=== PATIENT | female | born 1945 | race Caucasian/White ===

== ENCOUNTER 2018-01-16 11:54 | Emergency (ER) | payer MEDICARE, MEDICAID ==
[~2018-01-16] VITALS: Ht 162.6 cm; Wt 65.0 kg
[~2018-01-16 11:54] MED LIST: ALB0.5UD IH; ALBU18HF2 IH; ASPI-1265 PO; METO-539 PO; NITR100C6 PO; PANT40TA39 PO; SPIIN INH; TRAZ-91 PO; oxygen
[2018-01-16 12:37] VITALS: BP 151/91
[2018-01-16 13:19] LABS: BASOPHILS # (AUTO) 0.1 X10'3 (0-0.2); BASOPHILS % (AUTO) 1.4 % (0-1); EOSINOPHILS # (AUTO) 0.1 X10'3 (0-0.9); HEMATOCRIT 38.7 % (35.0-45.0); HEMOGLOBIN 13.1 g/dl (12.0-16.0); LYMPHOCYTES # (AUTO) 1.8 X10'3 (1.1-4.8); LYMPHOCYTES % (AUTO) 26.2 % (21-51); MEAN CORPUSCULAR HGB CONC 33.8 % (33.0-36.5); MEAN CORPUSCULAR VOLUME 91.7 FL (78-98); MEAN PLATELET VOLUME 8.3 FL (7.4-10.4); MONOCYTES # (AUTO) 0.5 X10'3 (0-0.9); MONOCYTES % (AUTO) 7.7 % (2-12); NEUTROPHILS # (AUTO) 4.4 X10'3 (1.8-7.7); NEUTROPHILS % (AUTO) 63.7 % (42-75); PLATELET COUNT 351 X10'3 (140-440); RED BLOOD COUNT 4.22 X10'6 (4.20-5.60)
[2018-01-16 13:26] LABS: PROTHROMBIN TIME 10.2 SECONDS (9.0-12.0)
[2018-01-16 13:32] LABS: ALANINE AMINOTRANSFERASE 20 U/L (12-78); ALBUMIN/GLOBULIN RATIO 1.1 (1.1-1.5); ALKALINE PHOSPHATASE 62 IU/L (46-116); ANION GAP 7 (8-16); ASPARTATE AMINO TRANSFERASE 20 U/L (10-37); BILIRUBIN,TOTAL 0.3 MG/DL (0.1-1.0); BLOOD UREA NITROGEN 8 MG/DL (7-18); BUN/CREATININE RATIO 13.3 (6.6-38.0); CALCIUM 9.7 MG/DL (8.5-10.1); CHLORIDE 101 MMOL/L (99-107); GLUCOSE 85 MG/DL (70-104); POTASSIUM 3.9 MMOL/L (3.5-5.1); SODIUM 138 MMOL/L (135-145); TOTAL CARBON DIOXIDE 29.6 MMOL/L (24-32); TOTAL PROTEIN 7.5 G/DL (6.4-8.2); eGFR > 90 ML/MIN
[2018-01-16 14:21] LABS: CLARITY,URINE CLEAR (Clear); COLOR,URINE YELLOW (Yellow); GLUCOSE, URINE NEGATIVE (Neg); KETONES,URINE NEGATIVE (Neg); LEUKOCYTE ESTERASE ,URINE NEGATIVE (Neg); NITRITES, URINE NEGATIVE (Neg); OCCULT BLOOD,URINE TRACE-INTACT (Neg); PROTEIN,URINE NEGATIVE (Neg); UROBILINOGEN,URINE 0.2 E.U/dL (0.2-1.0)
[2018-01-16 14:26] LABS: UA COLLECTION TYPE CLN CATCH MIDSTREAM
[2018-01-16 14:27] LABS: BACTERIA,URINE NONE SEEN /HPF (Neg); MUCUS STRANDS FEW /LPF (Neg); RBC,URINE 0-2 /HPF (0-2); SQUAMOUS EPITHELIAL CELL,UR NONE SEEN /LPF (FEW); WBC,URINE NONE SEEN /HPF (0-4)
== END 2018-01-16 14:56 | disposition home or self-care (01) ==
LOC: ER 11:55
DX: D69.2 Other nonthrombocytopenic purpura (principal); F12.90 Cannabis use, unspecified, uncomplicated; J44.9 Chronic obstructive pulmonary disease, unspecified; G89.29 Other chronic pain; Z86.73 Personal history of transient ischemic attack (TIA), and cerebral infarction without residual deficits; Z88.6 Allergy status to analgesic agent; Z88.5 Allergy status to narcotic agent; Z79.82 Long term (current) use of aspirin; Z79.899 Other long term (current) drug therapy
CPT/HCPCS: 36415; 80053; 81001; 85025; 85610; 99284

== ENCOUNTER 2019-08-20 22:41 | Emergency (ER) | payer MEDICARE, MEDICAID ==
[~2019-08-20] VITALS: Ht 162.6 cm; Wt 54.5 kg
[~2019-08-20 22:41] MED LIST changes: -ALB0.5UD IH; +ALPR-149 PO; +DOXY-224 PO; +LACT1CAP26 PO; +MONT10TA26 PO; -NITR100C6 PO; +NYSPWD TP; +PRED20TA PO; -oxygen
[2019-08-20] MEDS ORDERED: predniSONE 20 mg tablet PO ONE (23:35)
[2019-08-20] MEDS ORDERED: albuterol 2.5 MG/3 ML nebule NEB ONE (23:35)
[2019-08-20] MEDS ORDERED: DOXY100C2 PO (23:45)
[2019-08-20] MEDS ORDERED: PRED20TA PO (23:47)
[2019-08-20] MEDS ORDERED: DOXYCYCLINE 100MG CAPSULE PO STA (23:49)
--- NOTE | 2019-08-21 00:21 | NUR ---
SPOKE WITH [employer] ABOUT ASSITANCE WITH PT [facility]PORT[facility] HOME AND FOLLOW UP. THEY SAID THEY DO NOT PROVIDE TRANSPORT SERVICES OR ASSISTANCE TOMMORROW UNLESS THEY HAVE A SCHEDULED APPOINTMENT. WILL CONTINUE TO ATTEMPT OTHER TRANSPORT OPTIONS HOME FOR PT.
--- NOTE | 2019-08-21 00:36 | NUR ---
ATTEMTING TO CALL PT TONY MALINDA:[phone] AND AMBER [phone]
--- NOTE | 2019-08-21 00:39 | NUR ---
SPOKE WITH PT SON MALINDA. HE SAYS HE WILL BE ON HIS WAY AND WILL STOP AT PT HOUSE TO AERIAL ERECTOR O2 TANK AND WALKER FOR PT.
[2019-08-21 01:51] VITALS: BP 149/78
== END 2019-08-21 01:53 | disposition home or self-care (01) ==
LOC: ER 22:42
DX: J44.1 Chronic obstructive pulmonary disease with (acute) exacerbation (principal); G89.29 Other chronic pain; M79.7 Fibromyalgia; F41.9 Anxiety disorder, unspecified; F17.210 Nicotine dependence, cigarettes, uncomplicated; F12.90 Cannabis use, unspecified, uncomplicated; Z90.89 Acquired absence of other organs; Z86.73 Personal history of transient ischemic attack (TIA), and cerebral infarction without residual deficits; Z98.890 Other specified postprocedural states; Z88.5 Allergy status to narcotic agent; Z79.82 Long term (current) use of aspirin; Z79.899 Other long term (current) drug therapy
CPT/HCPCS: 71045; 94640; 99284; J7512; 94760

== ENCOUNTER 2019-08-30 11:00 | Emergency (ER) | payer MEDICARE, MEDICAID ==
[~2019-08-30] VITALS: Ht 162.6 cm; Wt 60.0 kg
[2019-08-30 11:33] LABS: BASOPHILS # (AUTO) 0.1 X10'3 (0-0.2); BASOPHILS % (AUTO) 0.5 % (0-1); EOSINOPHILS % (AUTO) 0.4 % (0-6); HEMATOCRIT 33.8 % (35.0-45.0); HEMOGLOBIN 11.7 g/dl (12.0-16.0); LYMPHOCYTES # (AUTO) 0.6 X10'3 (1.1-4.8); LYMPHOCYTES % (AUTO) 5.4 % (21-51); MEAN CORPUSCULAR HEMOGLOBIN 31.4 PG (27.0-31.0); MEAN CORPUSCULAR HGB CONC 34.6 g/dL (33.0-36.5); MEAN CORPUSCULAR VOLUME 90.8 FL (78-98); MONOCYTES # (AUTO) 0.4 X10'3 (0-0.9); MONOCYTES % (AUTO) 3.2 % (2-12); NEUTROPHILS # (AUTO) 10.2 X10'3 (1.8-7.7); NEUTROPHILS % (AUTO) 90.5 % (42-75); PLATELET COUNT 372 X10'3 (140-440); RED BLOOD COUNT 3.73 X10'6 (4.20-5.60); RED CELL DISTRIBUTION WIDTH 13.8 % (11.5-14.5); WHITE BLOOD COUNT 11.3 X10'3 (4.5-11.0)
[2019-08-30 11:46] LABS: CLARITY,URINE CLEAR (Clear); COLOR,URINE YELLOW (Yellow); GLUCOSE, URINE NEGATIVE (Neg); KETONES,URINE TRACE mg/dl (Neg); LEUKOCYTE ESTERASE ,URINE SMALL (Neg); NITRITES, URINE NEGATIVE (Neg); OCCULT BLOOD,URINE NEGATIVE (Neg); PH,URINE 6.5 (4.8-8.0); PROTEIN,URINE NEGATIVE (Neg); UROBILINOGEN,URINE 0.2 E.U/dL (0.2-1.0)
[2019-08-30 11:47] LABS: UA COLLECTION TYPE CLN CATCH MIDSTREAM
[2019-08-30 11:49] LABS: ALANINE AMINOTRANSFERASE 21 U/L (12-78); ALBUMIN 3.2 G/DL (3.4-5.0); ALKALINE PHOSPHATASE 49 IU/L (46-116); ANION GAP 3 (8-16); ASPARTATE AMINO TRANSFERASE 16 U/L (10-37); BILIRUBIN,TOTAL 0.5 MG/DL (0.1-1.0); BLOOD UREA NITROGEN 15 MG/DL (7-18); BUN/CREATININE RATIO 22.7 (6.6-38.0); CALCIUM 8.7 MG/DL (8.5-10.1); CHLORIDE 93 MMOL/L (99-107); CREATININE 0.66 MG/DL (0.40-0.90); GLUCOSE 110 MG/DL (70-104); LIPASE 177 U/L (73-393); SODIUM 132 MMOL/L (135-145); TOTAL CARBON DIOXIDE 36.4 MMOL/L (24-32); TOTAL PROTEIN 6.5 G/DL (6.4-8.2); eGFR 88 ML/MIN
[2019-08-30 11:52] LABS: POTASSIUM 2.8 MMOL/L (3.5-5.1)
[2019-08-30 11:57] LABS: MUCUS STRANDS MODERATE /LPF (Neg); SQUAMOUS EPITHELIAL CELL,UR MANY /LPF (FEW)
[2019-08-30 11:59] LABS: BACTERIA,URINE FEW /HPF (Neg); CAL OXALATE CRYSTALS 3+ /HPF (NEGATIVE); RBC,URINE 0-2 /HPF (0-2); RENAL CELLS, URINE FEW /HPF; WBC,URINE 0-4 /HPF (0-4)
[2019-08-30] MEDS ORDERED: potassium chloride 10mEq ER tablet PO STA (12:35)
[2019-08-30] MEDS ORDERED: POLY17PO10 PO (12:48)
[2019-08-30] MEDS ORDERED: HYDR30CR79 TOP (12:48)
[2019-08-30] MEDS ORDERED: DOCU100C40 PO (12:48)
--- NOTE | 2019-08-30 13:23 | NUR ---
PHONE CALL TO JAD [facility] AT THIS TIME [phone]. NO ANSWER, WILL KEEP TRYING TO REACH FOR TRANSPORTATION.
[2019-08-30 14:28] VITALS: BP 129/62
== END 2019-08-30 14:30 | disposition home or self-care (01) ==
LOC: ER 11:00
DX: K60.2 Anal fissure, unspecified (principal); K59.00 Constipation, unspecified; E87.6 Hypokalemia; J44.9 Chronic obstructive pulmonary disease, unspecified; G89.29 Other chronic pain; F12.90 Cannabis use, unspecified, uncomplicated; M79.7 Fibromyalgia; F41.9 Anxiety disorder, unspecified; Z86.73 Personal history of transient ischemic attack (TIA), and cerebral infarction without residual deficits; Z86.15 Personal history of latent tuberculosis infection; Z88.8 Allergy status to other drugs, medicaments and biological substances; Z79.82 Long term (current) use of aspirin; Z79.899 Other long term (current) drug therapy
CPT/HCPCS: 36415; 80053; 81001; 83690; 85025; 85610; 99284

== ENCOUNTER 2019-09-02 07:37 | Emergency (ER) | payer MEDICARE, MEDICAID ==
[~2019-09-02] VITALS: Ht 162.6 cm; Wt 65.0 kg
[~2019-09-02 07:37] MED LIST changes: +DOCU100C40 PO; +HYDR30CR79 TOP; +POLY17PO10 PO
[2019-09-02 09:35] LABS: CLARITY,URINE CLEAR (Clear); COLOR,URINE YELLOW (Yellow); GLUCOSE, URINE NEGATIVE (Neg); KETONES,URINE NEGATIVE (Neg); LEUKOCYTE ESTERASE ,URINE NEGATIVE (Neg); NITRITES, URINE NEGATIVE (Neg); OCCULT BLOOD,URINE NEGATIVE (Neg); PROTEIN,URINE NEGATIVE (Neg); UROBILINOGEN,URINE 0.2 E.U/dL (0.2-1.0)
[2019-09-02 09:37] LABS: UA COLLECTION TYPE CLN CATCH MIDSTREAM
[2019-09-02 11:08] VITALS: BP 130/56
[2019-09-07] MEDS ORDERED: POTA-82 PO (19:51)
[2019-09-07] MEDS ORDERED: NYST15PO4 TOP (23:48)
[2019-09-07] MEDS ORDERED: FURO20TA4 PO (23:48)
[2019-09-07] MEDS ORDERED: MONT10TA21 PO (23:48)
[2019-09-07] MEDS ORDERED: DOCU100C59 PO (23:48)
[2019-09-07] MEDS ORDERED: HYDR30CR99 TOP (23:48)
== END 2019-09-02 12:25 | disposition home or self-care (01) ==
LOC: ER 07:38
DX: R33.9 Retention of urine, unspecified (principal); K56.41 Fecal impaction; J44.9 Chronic obstructive pulmonary disease, unspecified; G89.29 Other chronic pain; F41.9 Anxiety disorder, unspecified; F12.90 Cannabis use, unspecified, uncomplicated; Z98.890 Other specified postprocedural states; Z86.73 Personal history of transient ischemic attack (TIA), and cerebral infarction without residual deficits; Z86.19 Personal history of other infectious and parasitic diseases; Z88.6 Allergy status to analgesic agent; Z88.5 Allergy status to narcotic agent; Z79.82 Long term (current) use of aspirin; Z79.899 Other long term (current) drug therapy
CPT/HCPCS: 51701; 81003; 99284

== ENCOUNTER 2021-07-29 17:04 | Emergency (ER) | payer MEDICARE, MEDICAID ==
[~2021-07-29] VITALS: Ht 162.6 cm; Wt 63.6 kg
[~2021-07-29 17:04] MED LIST changes: -ALPR-149 PO; +ATOR20TA66 PO; +CLOP75TA34 PO; -DOCU100C40 PO; +DOCU100C59 PO; -DOXY-224 PO; +FLUT16SP26 BOTHNARES; -HYDR30CR79 TOP; -LACT1CAP26 PO; +MONT10TA21 PO; -MONT10TA26 PO; +NICO-630 TD; -NYSPWD TP; -POLY17PO10 PO; -PRED20TA PO; -TRAZ-91 PO
[2021-07-29 17:08] VITALS: BP 149/78
[2021-07-29] MEDS ORDERED: tranexamic acid 100mg/ml inj. TP ONE (17:10)
[2021-07-29] MEDS ORDERED: AMOX-419 PO (17:28)
== END 2021-07-29 20:45 | disposition home or self-care (01) ==
LOC: ER 17:04
DX: R04.0 Epistaxis (principal); J44.9 Chronic obstructive pulmonary disease, unspecified; G89.29 Other chronic pain; M79.7 Fibromyalgia; F12.90 Cannabis use, unspecified, uncomplicated; Z86.73 Personal history of transient ischemic attack (TIA), and cerebral infarction without residual deficits; Z87.01 Personal history of pneumonia (recurrent); Z86.19 Personal history of other infectious and parasitic diseases; Z90.89 Acquired absence of other organs; Z88.8 Allergy status to other drugs, medicaments and biological substances; Z91.011 Allergy to milk products; Z79.82 Long term (current) use of aspirin; Z79.899 Other long term (current) drug therapy
CPT/HCPCS: 99283

== ENCOUNTER 2021-10-22 10:19 | Emergency (ER) | payer MEDICARE, MEDICAID ==
[~2021-10-22] VITALS: Ht 162.6 cm; Wt 65.0 kg
--- NOTE | 2021-10-22 11:36 | NUR ---
Lung sounds clear. Pt states she had a sinus infection for a few days- on doxycline and prednisone. Pt states that she feels like doxycline is the cause for her repeated UTIs. Pt states she had covid vaccines and booster.
--- NOTE | 2021-10-22 13:00 | NUR ---
Pt has no apparent distress or needs at this time.
[2021-10-22 13:19] LABS: BASOPHILS # (AUTO) 0.1 X10'3 (0-0.2); BASOPHILS % (AUTO) 0.6 % (0-1); EOSINOPHILS # (AUTO) 0.1 X10'3 (0-0.9); EOSINOPHILS % (AUTO) 1.1 % (0-6); HEMATOCRIT 38.2 % (35.0-45.0); HEMOGLOBIN 12.6 g/dl (12.0-16.0); LYMPHOCYTES # (AUTO) 2.3 X10'3 (1.1-4.8); LYMPHOCYTES % (AUTO) 24.2 % (21-51); MEAN CORPUSCULAR HEMOGLOBIN 30.3 PG (27.0-31.0); MEAN CORPUSCULAR HGB CONC 32.9 g/dL (33.0-36.5); MEAN CORPUSCULAR VOLUME 92.2 FL (78-98); MEAN PLATELET VOLUME 8.1 FL (7.4-10.4); MONOCYTES % (AUTO) 10.6 % (2-12); NEUTROPHILS # (AUTO) 6.1 X10'3 (1.8-7.7); NEUTROPHILS % (AUTO) 63.5 % (42-75); PLATELET COUNT 325 X10'3 (140-440); RED BLOOD COUNT 4.15 X10'6 (4.20-5.60); RED CELL DISTRIBUTION WIDTH 13.2 % (11.5-14.5); WHITE BLOOD COUNT 9.5 X10'3 (4.5-11.0)
[2021-10-22 13:29] LABS: ALANINE AMINOTRANSFERASE 19 U/L (12-78); ALBUMIN 3.2 G/DL (3.4-5.0); ALBUMIN/GLOBULIN RATIO 1.1 (1.1-1.5); ALKALINE PHOSPHATASE 42 IU/L (46-116); ANION GAP 8 (8-16); BILIRUBIN,TOTAL 0.3 MG/DL (0.1-1.0); BLOOD UREA NITROGEN 16 MG/DL (7-18); BUN/CREATININE RATIO 38.1 (6.6-38.0); CALCIUM 8.7 MG/DL (8.5-10.1); CHLORIDE 101 MMOL/L (99-107); CREATININE 0.42 MG/DL (0.40-0.90); GLUCOSE 90 MG/DL (70-104); SODIUM 139 MMOL/L (135-145); eGFR > 90 ML/MIN
[2021-10-22 13:32] LABS: CLARITY,URINE CLEAR (Clear); COLOR,URINE YELLOW (Yellow); GLUCOSE, URINE NEGATIVE (Neg); KETONES,URINE NEGATIVE (Neg); LEUKOCYTE ESTERASE ,URINE NEGATIVE (Neg); NITRITES, URINE NEGATIVE (Neg); OCCULT BLOOD,URINE NEGATIVE (Neg); PROTEIN,URINE NEGATIVE (Neg); UROBILINOGEN,URINE 0.2 E.U/dL (0.2-1.0)
[2021-10-22 13:33] LABS: UA COLLECTION TYPE CLN CATCH MIDSTREAM
[2021-10-22 13:35] LABS: ASPARTATE AMINO TRANSFERASE 16 U/L (10-37)
--- NOTE | 2021-10-22 15:00 | NUR ---
Pt distressed that she cannot find her phone. Helped her find it in the bed linens. Spilled her water, cleaned it up. No further needs at this time.
[2021-10-22] MEDS ORDERED: DOXY100T30 PO (17:35)
[2021-10-22] MEDS ORDERED: ASPI-1265 PO (17:36)
[2021-10-22] MEDS ORDERED: CLOP75TA33 PO (17:38)
[2021-10-22] MEDS ORDERED: ATOR20TA12 PO (17:38)
--- NOTE | 2021-10-22 17:38 | NUR ---
Pt up to bedside commode. Pt updated on progress. Will be updated. No further needs or apparent distress at this time.
[2021-10-22] MEDS ORDERED: mag hydrox/Alum hydrox/simeth 30ml oral suspension PO PRN (17:45)
[2021-10-22] MEDS ORDERED: bisacodyl 10mg suppository rectal RC PRN (17:45)
[2021-10-22] MEDS ORDERED: magnesium Cl slow-release 64mg tablet PO PRN (17:45)
[2021-10-22] MEDS ORDERED: potassium Cl 20 mEq SR tablet PO PRN ×2 (17:45)
[2021-10-22] MEDS ORDERED: magnesium 4gm in 100ml NS 100 ML IV PRN (17:45)
[2021-10-22] MEDS ORDERED: magnesium 2GM in 50ml NS 50 ML IV PRN (17:45)
[2021-10-22] MEDS ORDERED: acetaminophen 325mg tablet PO PRN ×2 (17:45)
[2021-10-22] MEDS ORDERED: potassium CL 10mEq/100ml bag 100 ML IV PRN (17:45)
[2021-10-22] MEDS ORDERED: magnesium hydroxide 30ml (MOM) UD suspension PO PRN (17:45)
[2021-10-22] MEDS ORDERED: HYDROcodone/acetaminophen 5mg/325mg tablet PO PRN (17:45)
[2021-10-22] MEDS ORDERED: ondansetron/PF 4mg/2ml inj IV PRN (17:45)
[2021-10-22] MEDS ORDERED: HYDROcodone/acetaminophen 10/325mg tab PO PRN (17:45)
[2021-10-22] MEDS ORDERED: ondansetron 4mg rapidly disintigrating tab PO PRN (17:45)
[2021-10-22] MEDS ORDERED: albuterol 2.5 MG/3 ML nebule NEB PRN (17:50)
[2021-10-22] MEDS: normal saline 1000ml 1,000 ML IV SCH ×2 (18:08→23:24)
[2021-10-22 18:46] LABS: MAGNESIUM 1.9 MG/DL (1.5-2.4); POTASSIUM 3.7 MMOL/L (3.5-5.1)
[2021-10-22] MEDS ORDERED: LORazepam 0.5 MG tablet PO PRN (19:05)
[2021-10-22] MEDS ORDERED: temazepam 15mg capsule PO PRN (21:00)
--- NOTE | 2021-10-22 21:23 | NUR ---
REPORT CALLED TO [facility] AT [facility] [id number] TO OCTOBER, PT READY FOR TRANSPORT
[2021-10-22 22:20] VITALS: BP 107/58
[2021-10-22] MEDS ORDERED: atorvastatin 20mg tablet PO SCH (22:38)
[2021-10-22] MEDS: K and/or MAG REPLACEMENT MC SCH (23:00)
[2021-10-22] MEDS: ipratropium 0.5 MG/2.5ML nebule NEB SCH (23:00)
[2021-10-22] MEDS: docusate sod 100mg capsule PO SCH (23:32)
[2021-10-23 02:00] VITALS: BP 156/96
[2021-10-23] MEDS: ipratropium 0.5 MG/2.5ML nebule NEB SCH ×2 (03:00→08:04)
[2021-10-23 06:00] VITALS: BP 117/53
[2021-10-23 06:51] LABS: BASOPHILS # (AUTO) 0.1 X10'3 (0-0.2); BASOPHILS % (AUTO) 0.5 % (0-1); EOSINOPHILS # (AUTO) 0.2 X10'3 (0-0.9); EOSINOPHILS % (AUTO) 1.7 % (0-6); HEMATOCRIT 37.7 % (35.0-45.0); HEMOGLOBIN 12.7 g/dl (12.0-16.0); LYMPHOCYTES # (AUTO) 2.1 X10'3 (1.1-4.8); MEAN CORPUSCULAR HEMOGLOBIN 31.2 PG (27.0-31.0); MEAN CORPUSCULAR HGB CONC 33.6 g/dL (33.0-36.5); MEAN CORPUSCULAR VOLUME 92.6 FL (78-98); MEAN PLATELET VOLUME 7.5 FL (7.4-10.4); MONOCYTES # (AUTO) 0.9 X10'3 (0-0.9); MONOCYTES % (AUTO) 8.9 % (2-12); NEUTROPHILS # (AUTO) 7.1 X10'3 (1.8-7.7); NEUTROPHILS % (AUTO) 68.9 % (42-75); PLATELET COUNT 342 X10'3 (140-440); RED BLOOD COUNT 4.07 X10'6 (4.20-5.60); RED CELL DISTRIBUTION WIDTH 12.9 % (11.5-14.5); WHITE BLOOD COUNT 10.3 X10'3 (4.5-11.0)
[2021-10-23 07:15] LABS: ALANINE AMINOTRANSFERASE 21 U/L (12-78); ALBUMIN 3.2 G/DL (3.4-5.0); ALBUMIN/GLOBULIN RATIO 1.2 (1.1-1.5); ALKALINE PHOSPHATASE 48 IU/L (46-116); ANION GAP 3 (8-16); ASPARTATE AMINO TRANSFERASE 13 U/L (10-37); BILIRUBIN,TOTAL 0.3 MG/DL (0.1-1.0); BLOOD UREA NITROGEN 14 MG/DL (7-18); BUN/CREATININE RATIO 35.9 (6.6-38.0); CHLORIDE 105 MMOL/L (99-107); CHOL/HDL RATIO 1.6 (0.00-4.99); CHOLESTEROL 152 MG/DL (0-200); CREATININE 0.39 MG/DL (0.40-0.90); GLUCOSE 89 MG/DL (70-104); HDL CHOLESTEROL 93 MG/DL (35-60); LDL CHOLESTEROL 41 MG/DL (50-100); MAGNESIUM 2.2 MG/DL (1.5-2.4); POTASSIUM 3.9 MMOL/L (3.5-5.1); SODIUM 141 MMOL/L (135-145); TOTAL CARBON DIOXIDE 32.7 MMOL/L (24-32); TOTAL PROTEIN 5.8 G/DL (6.4-8.2); TRIGLYCERIDES 84 MG/DL (20-135); eGFR > 90 ML/MIN
[2021-10-23] MEDS: docusate sod 100mg capsule PO SCH (08:00)
[2021-10-23] MEDS ORDERED: aspirin 325mg tablet, delayed-release (Ecotrin) PO SCH (08:00)
[2021-10-23] MEDS ORDERED: montelukast 10mg tablet PO SCH (08:00)
[2021-10-23] MEDS: K and/or MAG REPLACEMENT MC SCH (08:00)
[2021-10-23 11:00] VITALS: BP 138/63
--- NOTE | 2021-10-23 15:02 | NUR ---
Final Discharge Note Pt. received discharge instructions with no further questions; Pt IV removed with catheter intact; Pt tele box removed and returned to telegraphic service dispatcher; Per Dr. Moreno pt stable for discharge; Pt. refused MRI prior to leaving. [facility]
== END 2021-10-23 15:02 | disposition home or self-care (01) ==
LOC: ER 10:19 → ED HOLD 17:50 → PCU 3S 21:47
PROVIDERS: ADMIT Family Medicine; ATTEND Family Medicine
DX: R53.1 Weakness (principal); J44.9 Chronic obstructive pulmonary disease, unspecified; R41.82 Altered mental status, unspecified; G89.29 Other chronic pain; F41.9 Anxiety disorder, unspecified; F17.200 Nicotine dependence, unspecified, uncomplicated; F12.90 Cannabis use, unspecified, uncomplicated; Z86.73 Personal history of transient ischemic attack (TIA), and cerebral infarction without residual deficits; Z87.01 Personal history of pneumonia (recurrent); Z86.19 Personal history of other infectious and parasitic diseases; Z90.89 Acquired absence of other organs; Z98.890 Other specified postprocedural states; Z88.6 Allergy status to analgesic agent; Z88.5 Allergy status to narcotic agent; Z88.8 Allergy status to other drugs, medicaments and biological substances; Z79.82 Long term (current) use of aspirin; Z79.899 Other long term (current) drug therapy
CPT/HCPCS: 36415; 70450; 71045; 80053; 80061; 81003; 83735; 84132; 84484; 85025; 87081; 93005; 94640; 96360; 96361; 97161; 97530; 99285; G0378; J7030; 94760

== ENCOUNTER 2021-10-27 05:19 | Emergency (ER) | payer MEDICARE, MEDICAID ==
[~2021-10-27] VITALS: Ht 162.6 cm; Wt 59.1 kg
[~2021-10-27 05:19] MED LIST changes: +ATOR20TA12 PO; -ATOR20TA66 PO; -CLOP75TA34 PO; -DOCU100C59 PO; -NICO-630 TD; -PANT40TA39 PO
[2021-10-27] MEDS ORDERED: normal saline 1000ML IV soln IVB ONE (05:30)
[2021-10-27 06:20] LABS: BASOPHILS # (AUTO) 0.1 X10'3 (0-0.2); EOSINOPHILS # (AUTO) 0.1 X10'3 (0-0.9); EOSINOPHILS % (AUTO) 1.7 % (0-6); HEMATOCRIT 38.3 % (35.0-45.0); HEMOGLOBIN 12.6 g/dl (12.0-16.0); LYMPHOCYTES # (AUTO) 1.2 X10'3 (1.1-4.8); LYMPHOCYTES % (AUTO) 15.8 % (21-51); MEAN CORPUSCULAR HEMOGLOBIN 30.3 PG (27.0-31.0); MEAN CORPUSCULAR HGB CONC 32.8 g/dL (33.0-36.5); MEAN CORPUSCULAR VOLUME 92.3 FL (78-98); MEAN PLATELET VOLUME 7.8 FL (7.4-10.4); MONOCYTES # (AUTO) 0.7 X10'3 (0-0.9); MONOCYTES % (AUTO) 8.9 % (2-12); NEUTROPHILS # (AUTO) 5.7 X10'3 (1.8-7.7); NEUTROPHILS % (AUTO) 72.6 % (42-75); PLATELET COUNT 290 X10'3 (140-440); RED BLOOD COUNT 4.15 X10'6 (4.20-5.60); RED CELL DISTRIBUTION WIDTH 13.1 % (11.5-14.5); WHITE BLOOD COUNT 7.9 X10'3 (4.5-11.0)
[2021-10-27 06:37] LABS: ALANINE AMINOTRANSFERASE 19 U/L (12-78); ALBUMIN 3.6 G/DL (3.4-5.0); ALBUMIN/GLOBULIN RATIO 1.2 (1.1-1.5); ALKALINE PHOSPHATASE 51 IU/L (46-116); ANION GAP 6 (8-16); ASPARTATE AMINO TRANSFERASE 17 U/L (10-37); BILIRUBIN,TOTAL 0.4 MG/DL (0.1-1.0); BLOOD UREA NITROGEN 16 MG/DL (7-18); BUN/CREATININE RATIO 29.1 (6.6-38.0); CALCIUM 8.4 MG/DL (8.5-10.1); CHLORIDE 106 MMOL/L (99-107); CREATININE 0.55 MG/DL (0.40-0.90); GLUCOSE 91 MG/DL (70-104); POTASSIUM 3.8 MMOL/L (3.5-5.1); SODIUM 143 MMOL/L (135-145); TOTAL CARBON DIOXIDE 30.6 MMOL/L (24-32); TOTAL PROTEIN 6.5 G/DL (6.4-8.2); eGFR > 90 ML/MIN
[2021-10-27 07:25] LABS: CLARITY,URINE CLEAR (Clear); COLOR,URINE YELLOW (Yellow); GLUCOSE, URINE NEGATIVE (Neg); KETONES,URINE NEGATIVE (Neg); LEUKOCYTE ESTERASE ,URINE TRACE (Neg); NITRITES, URINE NEGATIVE (Neg); OCCULT BLOOD,URINE NEGATIVE (Neg); PROTEIN,URINE NEGATIVE (Neg); UROBILINOGEN,URINE 0.2 E.U/dL (0.2-1.0)
[2021-10-27 07:35] LABS: UA COLLECTION TYPE NON-SPECIFIED
[2021-10-27 07:36] LABS: BACTERIA,URINE FEW /HPF (Neg); MUCUS STRANDS NONE SEEN /LPF (Neg); RBC,URINE NONE SEEN /HPF (0-2); SQUAMOUS EPITHELIAL CELL,UR FEW /LPF (FEW); WBC,URINE 0-4 /HPF (0-4)
--- NOTE | 2021-10-27 07:52 | NUR ---
called charity at [phone] pt son twice not picking up the phone .no voice msg setup.
--- NOTE | 2021-10-27 07:55 | NUR ---
rony nam pt child ,shd be here in an hour.
[2021-10-27 10:02] VITALS: BP 116/99
== END 2021-10-27 10:07 | disposition home or self-care (01) ==
LOC: ER 05:20
DX: R53.1 Weakness (principal); R19.7 Diarrhea, unspecified; J44.9 Chronic obstructive pulmonary disease, unspecified; G89.29 Other chronic pain; M79.7 Fibromyalgia; F12.90 Cannabis use, unspecified, uncomplicated; Z87.01 Personal history of pneumonia (recurrent); Z87.19 Personal history of other diseases of the digestive system; Z86.19 Personal history of other infectious and parasitic diseases; Z90.89 Acquired absence of other organs; Z86.73 Personal history of transient ischemic attack (TIA), and cerebral infarction without residual deficits; Z98.890 Other specified postprocedural states; Z91.011 Allergy to milk products; Z88.8 Allergy status to other drugs, medicaments and biological substances; Z79.82 Long term (current) use of aspirin; Z79.899 Other long term (current) drug therapy
CPT/HCPCS: 36415; 71045; 80053; 81001; 84484; 85025; 87077; 87088; 87186; 93005; 96360; 99285; J7030

== ENCOUNTER 2021-11-24 15:54 | Emergency (ER) | payer MEDICARE, MEDICAID ==
[2021-11-24] VITALS (8 sets, daily range): BP systolic 89–145; BP diastolic 50–74
[~2021-11-24] VITALS: Ht 162.6 cm; Wt 59.0 kg
[2021-11-24 16:54] LABS: BASOPHILS # (AUTO) 0.1 X10'3 (0-0.2); BASOPHILS % (AUTO) 0.5 % (0-1); EOSINOPHILS % (AUTO) 0.3 % (0-6); HEMATOCRIT 30.2 % (35.0-45.0); HEMOGLOBIN 9.9 g/dl (12.0-16.0); LYMPHOCYTES # (AUTO) 1.2 X10'3 (1.1-4.8); LYMPHOCYTES % (AUTO) 8.9 % (21-51); MEAN CORPUSCULAR HEMOGLOBIN 28.5 PG (27.0-31.0); MEAN CORPUSCULAR HGB CONC 32.8 g/dL (33.0-36.5); MEAN CORPUSCULAR VOLUME 86.8 FL (78-98); MEAN PLATELET VOLUME 7.8 FL (7.4-10.4); MONOCYTES # (AUTO) 1.1 X10'3 (0-0.9); MONOCYTES % (AUTO) 8.1 % (2-12); NEUTROPHILS # (AUTO) 10.9 X10'3 (1.8-7.7); NEUTROPHILS % (AUTO) 82.2 % (42-75); PLATELET COUNT 599 X10'3 (140-440); RED BLOOD COUNT 3.48 X10'6 (4.20-5.60); RED CELL DISTRIBUTION WIDTH 14.5 % (11.5-14.5); WHITE BLOOD COUNT 13.2 X10'3 (4.5-11.0)
--- NOTE | 2021-11-24 16:54 | NUR ---
Spoke with Dr. Wheeler to see if he is aware of patient. Dr. Wheeler stated that he was called by Dr. Brenner this morning, but has not heard what the plan was. Dr. Wheeler stated that he would review the patients chart and see if he would be able to place peg tube today and patient would be able to be transported back to [facility]. Dr. Wheeler stated that he would call [facility] and call in GI lab if he was able to perform the procedure. Nika Brown and Dr. Rodriguezfs aware of plan.
[2021-11-24 17:07] LABS: ALANINE AMINOTRANSFERASE 17 U/L (12-78); ALBUMIN 2.7 G/DL (3.4-5.0); ALBUMIN/GLOBULIN RATIO 0.6 (1.1-1.5); ALKALINE PHOSPHATASE 66 IU/L (46-116); ANION GAP 6 (8-16); ASPARTATE AMINO TRANSFERASE 22 U/L (10-37); BILIRUBIN,TOTAL 0.4 MG/DL (0.1-1.0); BLOOD UREA NITROGEN 12 MG/DL (7-18); BUN/CREATININE RATIO 24.5 (6.6-38.0); CALCIUM 8.6 MG/DL (8.5-10.1); CHLORIDE 104 MMOL/L (99-107); CREATININE 0.49 MG/DL (0.40-0.90); GLUCOSE 115 MG/DL (70-104); POTASSIUM 3.4 MMOL/L (3.5-5.1); SODIUM 140 MMOL/L (135-145); TOTAL PROTEIN 7.2 G/DL (6.4-8.2); eGFR > 90 ML/MIN
[2021-11-24] MEDS ORDERED: fentaNYL/PF 50MCG/1 ML 2ML syringe ONE (17:36)
[2021-11-24] MEDS ORDERED: MIDAZolam 1 MG/ML 5ML VIAL ONE (17:36)
--- NOTE | 2021-11-24 17:44 | NUR ---
Trach pt from [facility] set up on bland aerosol via t-piece. Dr. Wheeler at bedside discussing peg tube placement, just waiting on GI. Pt's family member mentioned that te pt goes on the vent at night on spont and as needed during the day. This RT called alyssa and spome with Rona TAXI DRIVER. Per Rona, pt uses PS 12, PEEP 5 and 35% at night and as needed during the day if pt becomes too tired. Vent placed at bedside, waiting on procedure.
--- NOTE | 2021-11-24 19:35 | NUR ---
REPORT GIVEN ONLY STATED PT WAS RECOVERED, NO HX OR VITAL SIGNS REVIEWED. CHARGE NURSE AWARE OF SITUATION.
--- NOTE | 2021-11-24 19:36 | NUR ---
GI LAB NURSES STATED PT. WAS RECOVERED AND NOW IN MY CARE. WEANING PT VENT SETTINGS FOR TRANSFER BACK TO [facility].
--- NOTE | 2021-11-24 20:31 | NUR ---
PT REMOVED FROM VENTILATOR BY RT. ON 10L VIA TRACH COOL MIST SATURATION AT 100. NO VISIBLE DISTRESS
== END 2021-11-24 22:58 ==
LOC: ER 15:55
DX: Z43.1 Encounter for attention to gastrostomy (principal); J18.9 Pneumonia, unspecified organism; J44.9 Chronic obstructive pulmonary disease, unspecified; G89.29 Other chronic pain; F41.9 Anxiety disorder, unspecified; F17.210 Nicotine dependence, cigarettes, uncomplicated; F12.90 Cannabis use, unspecified, uncomplicated; Z86.73 Personal history of transient ischemic attack (TIA), and cerebral infarction without residual deficits; Z87.01 Personal history of pneumonia (recurrent); Z86.19 Personal history of other infectious and parasitic diseases; Z98.890 Other specified postprocedural states; Z90.89 Acquired absence of other organs; Z88.8 Allergy status to other drugs, medicaments and biological substances; Z88.6 Allergy status to analgesic agent; Z79.82 Long term (current) use of aspirin; Z79.899 Other long term (current) drug therapy
CPT/HCPCS: 36415; 43246; 71045; 80053; 85025; 87070; 99152; 99153; 99285; B4087; J2250; J3010; J7030; Z7512; 94002; 94760